=== PATIENT | female | born 1935 | race Asian ===

== ENCOUNTER → 2016-06-09 | Outpatient (CLI) | payer MEDICARE, OTHER ==
[~2016-06-09] MED LIST: DIPHENHYDRAMINE HCL 25 MG CAPSULE ONE
== END ==
LOC: RAD 12:36
PROVIDERS: ATTEND Internal Medicine Gastroenterology
DX: K57.30 Diverticulosis of large intestine without perforation or abscess without bleeding (principal); R10.32 Left lower quadrant pain; R19.4 Change in bowel habit
CPT/HCPCS: 82565; 74177; A9270